=== PATIENT | female | born 1970 ===

== ENCOUNTER 2016-09-13 18:17 | Emergency (ER) | payer BC ==
--- NOTE | 2016-09-13 19:34 | ED ORDER SUMMARY ---
..... Patient: FELICITY SOLOMON OrderSheet Located Within [facility] VisitID: [id number] [address] [place] [address] 45y, F Registration Date/Time: 09/13/2016 ORDER SHEET Weight: 95.2 kg (stated) Allergies: Tylenol, Aspirin GENERAL ORDERS: MEDICATION ORDERS: Toradol IM 60 mg (NOW) (18:37 09/13/2016 Seymour Ramey) (18:51 SStone R.N.) IV FLUIDS: ORDER SHEET NOTES: This document has not been locked and should not be saved in the medical record.
--- NOTE | 2016-09-13 19:34 | ED NURSING NOTES ---
Clinical Report - [facility] [address] [place] [address] 09/13/2016 18:17 [id number] Triage time 18:22. Acuity: LEVEL 4. Chief Complaint: RIGHT LOWER TOOTHACHE and SWELLING OF JAW / FACE. --18:25 Karyn Fermin R.N. 18:22 09/13/16. BP: 117/84. HR: 121. RR: 22. O2 saturation: 99%. Temp: 97.9 F. Pain level now: 01/01. --18:25 Karyn Fermin R.N. Weight: 95.2 kg stated. Height/Length: 62 inches Per Patient. BMI: 38.4. --18:24 Karyn Fermin R.N. Allergies Tylenol. --18:23 Karyn Fermin R.N. Aspirin. --18:23 Karyn Fermin R.N. History Arrived by private vehicle. Onset. (3 days ago). She has no dental appointment scheduled. She has had facial pain. ( chills). She has had swelling of the jaw. 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 PAST MEDICAL HX: Immunizations: up-to-date. SOCIAL HX: Light tobacco smoker (cigarette)- less than 1/2 a pack per day. No alcohol use or drug use. No infectious disease exposure. SELF HARM ASSESSMENT: A self harm assessment was performed. The patient answered "no" to the question "Do you have thoughts of harming or killing yourself?". She has been placed under supervision. --18:25 Karyn Fermin R.N. ADDITIONAL SURGERIES: no known surgeries. Interventions ID band on patient. To treatment room. --18:25 Karyn Fermin R.N. PHYSICAL ASSESSMENT Ambulatory to room. GENERAL / NEURO / PSYCH: Alert. Oriented X 4. Appears in pain and anxious. HEENT: Facial swelling present right jaw. Pupils equal, round and reactive to light. Pharynx within normal limits. Dental decay. Mucous membranes are pink. RESPIRATORY: Respirations not labored. SKIN: Skin is warm. --18:26 Karyn Fermin R.N. NURSING PROGRESS NOTES Reassurance given. Call light placed in reach. Bed placed in lowest position. Patient waiting for evaluation. --18:26 Karyn Fermin R.N. 18:51 09/13/2016 Toradol (Ketorolac Tromethamine) IM 60 mg given. Given in the right gluteus parth. Allergies verified and confirmed 5 rights. --18:51 Karyn Fermin R.N. Care transferred and report received (karyn, RN). --18:54 Roseanna Lopez R.N. DISPOSITION / DISCHARGE Departure time: 19:42. Condition at departure: stable. No learning barriers present. Discharge instructions provided and reviewed with the patient. Reviewed warnings. Reviewed medication(s) side effects, precautions, dosing and course information. Prescription(s) given to the patient. Treatments reviewed. Reviewed referrals for followup. Patient verbalized understanding. Written instructions provided in Turkish. The patient was discharged home and accompanied by plate corrector. She left the Emergency Department ambulatory and via private vehicle. Adjunct Phlebotomy Instructor driving. ( Patient states that a friend is driving her home tonight.). --19:43 Tra Paulson R.N. 19:41 09/13/16. BP: 121/89. HR: 118. RR: 20 (unlabored). O2 saturation: 99% on room air. Pain level now: 0/10. --19:43 Tra Paulson R.N. Locked/Released at 09/20/2016 7:59 by April Bacon R.N.
--- NOTE | 2016-09-13 19:34 | ED CLINICAL REPORT ---
Clinical Report - Physicians/Mid Levels [facility] [address] [place] [address] 09/13/2016 18:17 Patient: FELICITY SOLOMON *This is a preliminary document and is subject to change Time Seen: 18:27; initial patient contact. Arrived- By private vehicle. Historian- patient. HISTORY OF PRESENT ILLNESS Chief Complaint: DENTAL PAIN. This started about 3 ago days and is still present and worsening. It was abrupt in onset. Pain described as moderate. No sore throat, swollen jaw or face, jaw pain or facial pain. She has had toothache. Similar symptoms previously: Several times. Recent medical care: Not recently seen/assessed. REVIEW OF SYSTEMS No fever or headache. She has had chills. All systems otherwise negative, except as recorded above. PAST HISTORY See nurses notes. Surgeries: No history of previous surgery. Additional Surgeries: no known surgeries. Allergies: Aspirin. Tylenol. SOCIAL HISTORY Current every day smoker. No alcohol use or drug use. ADDITIONAL NOTES The nursing notes have been reviewed with agreement regarding the chief complaint, PMH and patient medications and allergies. PHYSICAL EXAM Appearance: Alert. No acute distress. Head: Normal external inspection. ENT: Moderate, localized dental decay (lower right second premolar). Dental tenderness. Pharynx normal. No trismus present. Neck: No adenopathy. CVS: Normal heart rate and rhythm. Heart sounds normal. Respiratory: No respiratory distress. Breath sounds normal. Skin: Normal skin color. No rash. Neuro: Oriented X 3. Nick Garvey Dr.
--- NOTE | 2016-09-13 19:34 | ED ORDER SUMMARY ---
..... Patient: FELICITY SOLOMON OrderSheet [facility] VisitID: [id number] [address] [place] [address] 45y, F Registration Date/Time: 09/13/2016 ORDER SHEET Weight: 95.2 kg (stated) Allergies: Tylenol, Aspirin GENERAL ORDERS: MEDICATION ORDERS: Toradol IM 60 mg (NOW) (18:37 09/13/2016 Seymour Ramey) (18:51 SStone R.N.) IV FLUIDS: ORDER SHEET NOTES: This document has not been locked and should not be saved in the medical record.
--- NOTE | 2016-09-13 19:34 | ED CLINICAL REPORT ---
Clinical Report - Physicians/Mid Levels [facility] [address] [place] [address] 09/13/2016 18:17 Patient: FELICITY SOLOMON *This is a preliminary document and is subject to change Time Seen: 18:27; initial patient contact. Arrived- By private vehicle. Historian- patient. HISTORY OF PRESENT ILLNESS Chief Complaint: DENTAL PAIN. This started about 3 ago days and is still present and worsening. It was abrupt in onset. Pain described as moderate. No sore throat, swollen jaw or face, jaw pain or facial pain. She has had toothache. Similar symptoms previously: Several times. Recent medical care: Not recently seen/assessed. REVIEW OF SYSTEMS No fever or headache. She has had chills. All systems otherwise negative, except as recorded above. PAST HISTORY See nurses notes. Surgeries: No history of previous surgery. Additional Surgeries: no known surgeries. Allergies: Aspirin. Tylenol. SOCIAL HISTORY Current every day smoker. No alcohol use or drug use. ADDITIONAL NOTES The nursing notes have been reviewed with agreement regarding the chief complaint, PMH and patient medications and allergies. PHYSICAL EXAM Appearance: Alert. No acute distress. Head: Normal external inspection. ENT: Moderate, localized dental decay (lower right second premolar). Dental tenderness. Pharynx normal. No trismus present. Neck: No adenopathy. CVS: Normal heart rate and rhythm. Heart sounds normal. Respiratory: No respiratory distress. Breath sounds normal. Skin: Normal skin color. No rash. Neuro: Oriented X 3. Nick Garvey Dr.
--- NOTE | 2016-09-13 19:34 | ED NURSING NOTES ---
Clinical Report - Nurses [facility] [address] [place] [address] 09/13/2016 18:17 [id number] TRI[facility] Triage time 18:22. Acuity: LEVEL 4. Chief Complaint: RIGHT LOWER TOOTHACHE and SWELLING OF JAW / FACE. --18:25 Karyn Fermin R.N. 18:22 09/13/16. BP: 117/84. HR: 121. RR: 22. O2 saturation: 99%. Temp: 97.9 F. Pain level now: 01/01. --18:25 Karyn Fermin R.N. Weight: 95.2 kg stated. Height/Length: 62 inches Per Patient. BMI: 38.4. --18:24 Karyn Fermin R.N. Allergies Tylenol. --18:23 Karyn Fermin R.N. Aspirin. --18:23 Karyn Fermin R.N. History Arrived by private vehicle. Onset. (3 days ago). She has no dental appointment scheduled. She has had facial pain. ( chills). She has had swelling of the jaw. 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 PAST MEDICAL HX: Immunizations: up-to-date. SOCIAL HX: Light tobacco smoker (cigarette)- less than 1/2 a pack per day. No alcohol use or drug use. No infectious disease exposure. SELF HARM ASSESSMENT: A self harm assessment was performed. The patient answered "no" to the question "Do you have thoughts of harming or killing yourself?". She has been placed under supervision. --18:25 Karyn Fermin R.N. ADDITIONAL SURGERIES: no known surgeries. Interventions ID band on patient. To treatment room. --18:25 Karyn Fermin R.N. PHYSICAL ASSESSMENT Ambulatory to room. GENERAL / NEURO / PSYCH: Alert. Oriented X 4. Appears in pain and anxious. HEENT: Facial swelling present right jaw. Pupils equal, round and reactive to light. Pharynx within normal limits. Dental decay. Mucous membranes are pink. RESPIRATORY: Respirations not labored. SKIN: Skin is warm. --18:26 Karyn Fermin R.N. NURSING PROGRESS NOTES Reassurance given. Call light placed in reach. Bed placed in lowest position. Patient waiting for evaluation. --18:26 Karyn Fermin R.N. 18:51 09/13/2016 Toradol (Ketorolac Tromethamine) IM 60 mg given. Given in the right gluteus parth. Allergies verified and confirmed 5 rights. --18:51 Karyn Fermin R.N. Care transferred and report received (karyn, RN). --18:54 Roseanna Lopez R.N. DISPOSITION / DISCHARGE Departure time: 19:42. Condition at departure: stable. No learning barriers present. Discharge instructions provided and reviewed with the patient. Reviewed warnings. Reviewed medication(s) side effects, precautions, dosing and course information. Prescription(s) given to the patient. Treatments reviewed. Reviewed referrals for followup. Patient verbalized understanding. Written instructions provided in Bulgarian. The patient was discharged home and accompanied by ceramic tile mechanic. She left the Emergency Department ambulatory and via private vehicle. Senior Designer driving. ( Patient states that a friend is driving her home tonight.). --19:43 Tra Paulson R.N. 19:41 09/13/16. BP: 121/89. HR: 118. RR: 20 (unlabored). O2 saturation: 99% on room air. Pain level now: 0/10. --19:43 Tra Paulson R.N. Locked/Released at 09/20/2016 7:59 by April Bacon R.N.
--- NOTE | 2016-09-20 08:00 | ED MED RECONCILIATION SUMMARY ---
Patient: FELICITY SOLOMON Medication Reconciliation Report [facility] VisitID: [id number] [address] [place] [address] 45y, F Registration Date/Time: 09/13/2016 Weight: 95.2 kg Height/Length: 62 in. BMI: 38.4 ALLERGIES: Aspirin, Tylenol The patient's Home Medications are listed below: Not obtained. The source(s) of the original Home Medication information: Not obtained. The following Medications were given to the patient in the Emergency Department: Toradol [IM] IM 60 mg, administered: 09/13/2016 6:51:00 PM The following Medications were prescribed to the patient: Clindamycin 300 mg: take 1 capsule orally every 6 hours for 7 days. No refill. -- Nick Garvey Dr. Oxycodone 5 mg tablets: take 1 orally every 6 hours as needed for pain. Dispense fifteen (15). No refill. -- Nick Garvey Dr.
--- NOTE | 2016-09-20 08:00 | ED MED RECONCILIATION SUMMARY ---
Patient: FELICITY SOLOMON Medication Reconciliation Report [facility] VisitID: [id number] [address] [place] [address] 45y, F Registration Date/Time: 09/13/2016 Weight: 95.2 kg Height/Length: 62 in. BMI: 38.4 ALLERGIES: Aspirin, Tylenol The patient's Home Medications are listed below: Not obtained. The source(s) of the original Home Medication information: Not obtained. The following Medications were given to the patient in the Emergency Department: Toradol [IM] IM 60 mg, administered: 09/13/2016 6:51:00 PM The following Medications were prescribed to the patient: Clindamycin 300 mg: take 1 capsule orally every 6 hours for 7 days. No refill. -- Nick Garvey Dr. Oxycodone 5 mg tablets: take 1 orally every 6 hours as needed for pain. Dispense fifteen (15). No refill. -- Nick Garvey Dr.
--- NOTE | 2016-09-20 08:00 | ED MAR SUMMARY ---
..... Medication Administration Record [facility] [address] [place] [address] Patient: FELICITY SOLOMON Visit ID: [id number] 45y, F Weight: 95.2 kg Height/Length: 62 in BMI: 38.4 ALLERGIES: Aspirin, Tylenol Given 18:51 09/13/2016 Karyn Fermin R.N. Medication Administered: TORADOL [IM] (KETOROLAC TROMETHAMINE), Dose: 60 mg IM. Medication Ordered: Toradol IM 60 mg (NOW).
--- NOTE | 2016-09-20 08:00 | ED MAR SUMMARY ---
..... Medication Administration Record [facility] [address] [place] [address] Patient: FELICITY SOLOMON Visit ID: [id number] 45y, F Weight: 95.2 kg Height/Length: 62 in BMI: 38.4 ALLERGIES: Aspirin, Tylenol Given 18:51 09/13/2016 Karyn Fermin R.N. Medication Administered: TORADOL [IM] (KETOROLAC TROMETHAMINE), Dose: 60 mg IM. Medication Ordered: Toradol IM 60 mg (NOW).
--- NOTE | 2016-09-20 08:00 | ED DISCHARGE INSTRUCTIONS ---
Patient: FELICITY SOLOMON General Instructions [facility] VisitID: [id number] [address] [place] [address] 45y, F Registration Date/Time: 09/13/2016 Dental caries (localized) INSTRUCTIONS Prescription Medications: Clindamycin 300 mg: take 1 capsule orally every 6 hours for 7 days. No refill. Oxycodone 5 mg tablets: take 1 orally every 6 hours as needed for pain. Dispense fifteen (15). No refill. Follow-up: Screening today revealed the patient's blood pressure to be in the pre-hypertensive range. The patient should follow up with a primary care provider for blood pressure management. Follow-up with: [facility], , , , , , Follow up in about two days. Call for an appointment. ADDITIONAL INFORMATION Dental Cavity A dental cavity is a pit or crater in the enamel surface of the tooth. This exposes the sensitive inner layer of the tooth and causes pain. If untreated, the cavity will get bigger and may cause an infection or abscess in the root of the tooth. An infection in the tooth is a much more serious problem and may require a root canal or removal of the entire tooth. The tooth pain may be made worse by drinking hot or cold fluids. It may spread from the tooth to the ear or jaw on the same side. Home Care: Avoid hot and cold foods, and liquids since your tooth may be sensitive to temperature changes. If your tooth is chipped or cracked, or if there is a large open cavity, apply OIL OF CLOVES (available dgsv-tnh-ypoqxma in drug stores) directly to the tooth to reduce pain. Some pharmacies carry an pxad-vgs-zediqay "toothache kit." This contains oil of cloves and a paste, which can be applied over the exposed tooth to decrease sensitivity. An ice pack on your jaw over the sore area may help to reduce pain. You may use acetaminophen (Tylenol) or ibuprofen (Motrin, Advil) to control pain, unless another pain medicine was prescribed. [ NOTE: If you have liver disease or ever had a stomach ulcer, talk with your doctor before using these medicines.] If you have signs of an infection, an antibiotic will be given. Take it as directed. Follow-Up with your dentist as directed. Although your pain may go away with the treatment given, only a dentist can fully evaluate and treat this problem to prevent further tooth damage. Get Prompt Medical Attention if any of the following occur: Redness or swelling of the face Pain worsens or spreads to the neck Fever over 100.5 F (38C) Unusual drowsiness; headache or stiff neck; weakness or fainting Pus drains from the tooth or gum Difficulty swallowing or breathing Dental Pain A crack or cavity in the tooth, which exposes the sensitive inner area of the tooth can cause tooth pain. An infection in the gum or the root of the tooth can cause pain and swelling. The pain is often made worse by drinking hot or cold fluids, or biting on hard foods. Pain may spread from the tooth to the ear or jaw on the same side. Home Care: Avoid hot and cold foods and liquids since your tooth may be sensitive to temperature changes. If your tooth is chipped or cracked, or if there is a large open cavity, apply OIL OF CLOVES (available pwpx-lsk-jhzbwwr in drug stores) directly to the tooth to reduce pain. Some pharmacies carry an nyrb-ybk-ydnlyom "toothache kit." This contains a paste, which can be applied over the exposed tooth to decrease sensitivity. A cold pack on your jaw over the sore area may help reduce pain. You may use acetaminophen (Tylenol) or ibuprofen (Motrin, Advil) to control pain, unless another medicine was prescribed. [ NOTE: If you have chronic liver or kidney disease or ever had a stomach ulcer or GI bleeding, talk with your doctor before using these medicines.] If you have signs of an infection, an antibiotic will be given. Take it as directed. Follow-Up as directed with a dentist. Your pain may go away with the treatment given. However, only a dentist can fully evaluate and treat the cause and prevent the pain from coming back again. TOOTHACHE IS A SIGN OF DISEASE IN YOUR TOOTH AND SHOULD BE EXAMINED AND TREATED BY A DENTIST. Get Prompt Medical Attention if any of the following occur: Your face becomes swollen or red Pain worsens or spreads to the neck Fever over 100.4 F (38.0 C) Unusual drowsiness; headache or stiff neck; weakness or fainting Pus drains from the tooth Difficulty swallowing or breathing Clindamycin Hydrochloride Oral capsule What is this medicine? CLINDAMYCIN (KLIN da MYE sin) is a lincosamide antibiotic. It is used to treat certain kinds of bacterial infections. It will not work for colds, flu, or other viral infections. How should I use this medicine? Take this medicine by mouth with a full glass of water. Follow the directions on the prescription label. You can take this medicine with food or on an empty stomach. If the medicine upsets your stomach, take it with food. Take your medicine at regular intervals. Do not take your medicine more often than directed. Take all of your medicine as directed even if you think your are better. Do not skip doses or stop your medicine early. Talk to your manager tax regarding the use of this medicine in children. Special care may be needed. What side effects may I notice from receiving this medicine? Side effects that you should report to your doctor or health auto care center manager as soon as possible: allergic reactions like skin rash, itching or hives, swelling of the face, lips, or tongue dark urine pain on swallowing redness, blistering, peeling or loosening of the skin, including inside the mouth unusual bleeding or bruising unusually weak or tired yellowing of eyes or skin Side effects that usually do not require medical attention (report to your doctor or health auto care center manager if they continue or are bothersome): diarrhea itching in the rectal or genital area joint pain nausea, vomiting stomach pain What may interact with this medicine? chloramphenicol erythromycin kaolin products What if I miss a dose? If you miss a dose, take it as soon as you can. If it is almost time for your next dose, take only that dose. Do not take double or extra doses. Where should I keep my medicine? Keep out of the reach of children. Store at room temperature between 20 and 25 degrees C (68 and 77 degrees F). Throw away any unused medicine after the expiration date. What should I tell my health care provider before I take this medicine? They need to know if you have any of these conditions: kidney disease liver disease stomach problems like colitis an unusual or allergic reaction to clindamycin, lincomycin, or other medicines, foods, dyes like tartrazine or preservatives or trying to get breast-feeding What should I watch for while using this medicine? Tell your doctor or healthcare professional if your symptoms do not start to get better or if they get worse. Do not treat diarrhea with over the counter products. Contact your doctor if you have diarrhea that lasts more than 2 days or if it is severe and watery. You have been given the following additional information: Dental Cavity Dental Pain Clindamycin Hydrochloride Oral capsule (Electronically signed by Nick Garvey Dr. 09/14/2016 8:46)
--- NOTE | 2016-09-20 08:00 | ED DISCHARGE INSTRUCTIONS ---
Patient: FELICITY SOLOMON General Instructions [facility] VisitID: [id number] [place] [address] 45y, F Registration Date/Time: 09/13/2016 Dental caries (localized) INSTRUCTIONS Prescription Medications: Clindamycin 300 mg: take 1 capsule orally every 6 hours for 7 days. No refill. Oxycodone 5 mg tablets: take 1 orally every 6 hours as needed for pain. Dispense fifteen (15). No refill. Follow-up: Screening today revealed the patient's blood pressure to be in the pre-hypertensive range. The patient should follow up with a primary care provider for blood pressure management. Follow-up with: [facility], , , , , , Follow up in about two days. Call for an appointment. ADDITIONAL INFORMATION Dental Cavity A dental cavity is a pit or crater in the enamel surface of the tooth. This exposes the sensitive inner layer of the tooth and causes pain. If untreated, the cavity will get bigger and may cause an infection or abscess in the root of the tooth. An infection in the tooth is a much more serious problem and may require a root canal or removal of the entire tooth. The tooth pain may be made worse by drinking hot or cold fluids. It may spread from the tooth to the ear or jaw on the same side. Home Care: Avoid hot and cold foods, and liquids since your tooth may be sensitive to temperature changes. If your tooth is chipped or cracked, or if there is a large open cavity, apply OIL OF CLOVES (available qpuw-wqm-aknopgw in drug stores) directly to the tooth to reduce pain. Some pharmacies carry an bjgl-wso-gjmques "toothache kit." This contains oil of cloves and a paste, which can be applied over the exposed tooth to decrease sensitivity. An ice pack on your jaw over the sore area may help to reduce pain. You may use acetaminophen (Tylenol) or ibuprofen (Motrin, Advil) to control pain, unless another pain medicine was prescribed. [ NOTE: If you have liver disease or ever had a stomach ulcer, talk with your doctor before using these medicines.] If you have signs of an infection, an antibiotic will be given. Take it as directed. Follow-Up with your dentist as directed. Although your pain may go away with the treatment given, only a dentist can fully evaluate and treat this problem to prevent further tooth damage. Get Prompt Medical Attention if any of the following occur: Redness or swelling of the face Pain worsens or spreads to the neck Fever over 100.5 F (38C) Unusual drowsiness; headache or stiff neck; weakness or fainting Pus drains from the tooth or gum Difficulty swallowing or breathing Dental Pain A crack or cavity in the tooth, which exposes the sensitive inner area of the tooth can cause tooth pain. An infection in the gum or the root of the tooth can cause pain and swelling. The pain is often made worse by drinking hot or cold fluids, or biting on hard foods. Pain may spread from the tooth to the ear or jaw on the same side. Home Care: Avoid hot and cold foods and liquids since your tooth may be sensitive to temperature changes. If your tooth is chipped or cracked, or if there is a large open cavity, apply OIL OF CLOVES (available bcvy-rde-mvftuel in drug stores) directly to the tooth to reduce pain. Some pharmacies carry an vppr-hul-vrtjamp "toothache kit." This contains a paste, which can be applied over the exposed tooth to decrease sensitivity. A cold pack on your jaw over the sore area may help reduce pain. You may use acetaminophen (Tylenol) or ibuprofen (Motrin, Advil) to control pain, unless another medicine was prescribed. [ NOTE: If you have chronic liver or kidney disease or ever had a stomach ulcer or GI bleeding, talk with your doctor before using these medicines.] If you have signs of an infection, an antibiotic will be given. Take it as directed. Follow-Up as directed with a dentist. Your pain may go away with the treatment given. However, only a dentist can fully evaluate and treat the cause and prevent the pain from coming back again. TOOTHACHE IS A SIGN OF DISEASE IN YOUR TOOTH AND SHOULD BE EXAMINED AND TREATED BY A DENTIST. Get Prompt Medical Attention if any of the following occur: Your face becomes swollen or red Pain worsens or spreads to the neck Fever over 100.4 F (38.0 C) Unusual drowsiness; headache or stiff neck; weakness or fainting Pus drains from the tooth Difficulty swallowing or breathing Clindamycin Hydrochloride Oral capsule What is this medicine? CLINDAMYCIN (KLIN da MYE sin) is a lincosamide antibiotic. It is used to treat certain kinds of bacterial infections. It will not work for colds, flu, or other viral infections. How should I use this medicine? Take this medicine by mouth with a full glass of water. Follow the directions on the prescription label. You can take this medicine with food or on an empty stomach. If the medicine upsets your stomach, take it with food. Take your medicine at regular intervals. Do not take your medicine more often than directed. Take all of your medicine as directed even if you think your are better. Do not skip doses or stop your medicine early. Talk to your search advertising strategist regarding the use of this medicine in children. Special care may be needed. What side effects may I notice from receiving this medicine? Side effects that you should report to your doctor or health senior care assistant as soon as possible: allergic reactions like skin rash, itching or hives, swelling of the face, lips, or tongue dark urine pain on swallowing redness, blistering, peeling or loosening of the skin, including inside the mouth unusual bleeding or bruising unusually weak or tired yellowing of eyes or skin Side effects that usually do not require medical attention (report to your doctor or health senior care assistant if they continue or are bothersome): diarrhea itching in the rectal or genital area joint pain nausea, vomiting stomach pain What may interact with this medicine? chloramphenicol erythromycin kaolin products What if I miss a dose? If you miss a dose, take it as soon as you can. If it is almost time for your next dose, take only that dose. Do not take double or extra doses. Where should I keep my medicine? Keep out of the reach of children. Store at room temperature between 20 and 25 degrees C (68 and 77 degrees F). Throw away any unused medicine after the expiration date. What should I tell my health care provider before I take this medicine? They need to know if you have any of these conditions: kidney disease liver disease stomach problems like colitis an unusual or allergic reaction to clindamycin, lincomycin, or other medicines, foods, dyes like tartrazine or preservatives or trying to get breast-feeding What should I watch for while using this medicine? Tell your doctor or healthcare professional if your symptoms do not start to get better or if they get worse. Do not treat diarrhea with over the counter products. Contact your doctor if you have diarrhea that lasts more than 2 days or if it is severe and watery. You have been given the following additional information: Dental Cavity Dental Pain Clindamycin Hydrochloride Oral capsule (Electronically signed by Nick Garvey Dr. 09/14/2016 8:46)
== END 2016-09-13 19:44 | disposition home or self-care (01) ==
LOC: ED SRH 18:17
DX: K02.9 Dental caries, unspecified (principal)

== ENCOUNTER 2016-10-10 14:41 | Outpatient (CLI) | payer BC | END 2016-10-10 23:00 | LOC: LAB SRH 14:41 | DX: E03.9 Hypothyroidism, unspecified (principal); E55.9 Vitamin D deficiency, unspecified; Z83.3 Family history of diabetes mellitus | CPT/HCPCS: 90074; 90100; 91096; 91286; 93140; 95059 ==

== ENCOUNTER 2017-01-10 10:06 | Outpatient (CLI) | payer BC | END 2017-01-10 23:00 | LOC: LAB SRH 10:06 | DX: E03.9 Hypothyroidism, unspecified (principal) | CPT/HCPCS: 90074; 90100; 91585; 93140 ==